=== PATIENT | male | born 1960 | race Caucasian/White ===

== ENCOUNTER 2018-09-05 20:34 | Emergency (ER) | payer MEDICAID ==
[~2018-09-05] VITALS: Ht 175.3 cm; Wt 68.9 kg
[2018-09-05 20:38] VITALS: Ht 175.3 cm; Wt 68.9 kg
[2018-09-05 21:48] VITALS: BP 159/76
== END 2018-09-05 21:48 | disposition left against medical advice (07) ==
LOC: ED 20:34
DX: R07.89 Other chest pain (principal); R06.00 Dyspnea, unspecified; Z88.0 Allergy status to penicillin
CPT/HCPCS: 36415; Q0162